=== PATIENT | female | born 1965 | race Caucasian/White ===

== ENCOUNTER 2021-01-21 14:14 | Emergency (ER) | payer SELFPAY ==
[2021-01-21 14:16] VITALS: BP 150/97; PULSE 89; RESP 18; TEMP 36.6; O2SAT 97; BMI 27.2
--- NOTE | 2021-01-21 15:24 | W.ED.BACK ---
HPI - Back Pain/Injury General: Chief Complaint: Back Pain/Injury Stated Complaint: FALL, BACK INJURY Time Seen by Provider: 01/21/21 15:23 History of Present Illness: HPI Narrative: Patient is a 55-year-old female comes to the ED with back pain and injury. Injury occurred approximately 1 week ago. Patient says she was moving some furniture and going up a flight of stairs. She ended up falling backwards approximately 8 stairs up and fell back on her tailbone and lower back region. Denies any head trauma or loss of consciousness, nausea or vomiting. She is here complaining of pain from her tailbone up to her mid back and right ribs. She says that her rib pain is predominantly on the right side it hurts if she coughs or takes a deep breath. She rates her pain a 9 out of 10. She has 2 superficial abrasions on her right and left forearm. Patient says she is unsure of her last tetanus and would like to get a tetanus shot today. She has been taking some ibuprofen to help with pain. Associated symptoms: Deny abdominal pain, chills, dysuria, fatigue, fever(s), hematuria, nausea or vomiting Review of Systems Const: Denies: fever(s), chills or fatigue Eyes: Denies: change in vision or eye discomfort ENMT: Denies: throat pain, odynophagia, nasal discharge or nasal congestion Card: Denies: chest pain, palpitations, edema, swelling of feet/ankles, dyspnea on exertion or orthopnea Resp: Reports: pain on inspiration (Right side/ribs); Denies: dyspnea, productive cough or non-productive cough GI: Denies: abdominal pain, nausea, vomiting, diarrhea, constipation or hematochezia : Denies: flank pain, dysuria or hematuria Musc: Reports: back pain; Denies: neck pain or extremity swelling Skin/Breast: Reports: new lesions (2 superficial abrasions to right left forearm); Denies: rash Neuro: Denies: headache(s), numbness in extremities or weakness in extremities Physical Exam Const: COMMON NORMALS: no acute distress, patient oriented x3, healthy appearing and alert GENERAL APPEARANCE: cooperative and comfortable HENMT: COMMON NORMALS: normocephalic HEAD & SCALP: normocephalic MOUTH: Normal oral and palatal mucosa present THROAT: posterior oropharynx normal and uvula midline Neck/C-Spine: COMMON NORMALS: supple GENERAL: Yes normal visual inspection Chest: CHEST: Yes tenderness rib right mid-scapular line involving the 5th rib, involving the 6th rib, involving the 7th rib and involving the 8th rib Resp: COMMON NORMALS: normal respiratory effort, No retractions, No use of accessory muscles and clear to auscultation bilaterally EFFORT & INSPECTION: Yes able to speak in complete sentences, No tachypneic, No respiratory distress and No labored AUSCULTATION: clear to auscultation bilaterally Cardio: COMMON NORMALS: regular rate, regular rhythm, S1 normal heart sound present, S2 normal heart sound present, No gallops present (Cardio), No clicks present (Cardio), No murmurs present (Cardio) and Peripheral pulses 2+ throughout RATE: regular rate RHYTHM: regular rhythm HEART SOUNDS: S1 normal heart sound present and S2 normal heart sound present PERIPHERAL PULSES: Peripheral pulses 2+ throughout GI: COMMON NORMALS: Normal to inspection, nondistended, normoactive bowel sounds present, Soft to palpation, non-tender and no masses PALPATION: Yes Soft to palpation : COMMON NORMALS: Yes no CVA tenderness BLADDER/KIDNEY EXAM: Yes no CVA tenderness Back/Pelvis: COMMON NORMALS: no CVA tenderness THORACIC SPINE/UPPER BACK: Yes pain with ROM, Yes thoracic spinal tenderness and Yes paraspinal muscle tenderness LUMBAR SPINE/LOWER BACK: Yes pain with ROM, Yes lumbar spinal tenderness and Yes paraspinal muscle tenderness SACRUM: tenderness COCCYX: Coccyx tenderness present Extremity: COMMON NORMALS: normal to inspection Neuro: COMMON NORMALS: patient oriented x3 and moves all extremities SENSORIUM/ORIENTATION: Yes alert Skin: GENERAL SKIN EXAM: dry skin Course Vital Signs: Vital signs: Vital Signs Temperature 97.9 F 01/21/21 14:16 Pulse Rate 75 01/21/21 17:59 Respiratory Rate 16 01/21/21 17:59 Blood Pressure 151/99 01/21/21 17:59 Pulse Oximetry 96 01/21/21 17:59 MDM - Back Pain/Injury MDM Narrative: Medical decision making narrative: Patient is a 55-year-old female comes to the ED with back pain and rib pain after having a fall. Patient says approximately 1 week ago she fell back words off of stairs landing on tailbone, mid and lower back. Denies any head injury or loss of consciousness. Exam findings show some right rib tenderness upon palpation and paraspinal lumbar and thoracic muscle tenderness along with spinal tenderness along the thoracic spine down to the coccyx. X-ray of right ribs showed no acute fractures. X-ray of thoracic spine and sacrum and coccyx showed no acute fractures or findings. X-ray of lumbar spine showed a likely new compression fracture on L2. Patient was diagnosed with a closed wedge compression fracture of L2 vertebrae and was discharged with a TLSO brace and a written prescription for tablets. I placed an order with case management for patient to be referred to an orthospine doctor she is from the [facility]. I told patient that machine adjuster leader case trim will contact her in a couple days to discuss setting up an orthospine doctor appointment. Patient understood agree with plan. Imaging Data^: Xray Ortho: Attestation: I personally reviewed and interpreted this imaging study as follows: Radiologist's impression: [address] [address] XRay Report Signed Patient: MAREK WRIGHT Unit #: [id number] : 1965 Age/Sex: 55 / F ADM Date: 01/21/21 Loc: ER Room/Bed: Attending Dr: Ordering Provider/Ordering MD: Kilo Price Date of Service: 01/21/21 Procedure(s): XR thoracic spine 2V 19242 Accession Number(s): [id number] Report Number: [id number] PROCEDURE INFORMATION: Exam: XR Thoracic Spine Exam date and time: 01/21/2021 3:42 PM Age: 55 years old Clinical indication: Pain and injury or trauma; Blunt trauma (contusions or hematomas); Pain in thoracic spine; Injury date: 01/13/21; Injury details: Fell down stairs; Prior surgery; Surgery type: Gallbladder, fallopian clips; Additional info: Fall injury with back pain TECHNIQUE: Imaging protocol: XR of the thoracic spine. Views: 3 views. Total images: 2 COMPARISON: No relevant prior studies available. FINDINGS: Bones/joints: No visible acute osseous abnormality. Minimal scoliotic curvature. Pedicles intact. Mild to moderate degenerative disease and degenerative disc disease with spondylosis deformans. Soft tissues: Unremarkable. XR/XR thoracic spine 2V 59971 IMPRESSION: No visible acute osseous abnormality. Dictated By: Júnior Mcallister Signed By: Júnior Mcallister Signed Date/Time: 01/21/211647 DD/ [address] [place] [address] XRay Report Signed Patient: MAREK WRIGHT Unit #: [id number] : 1965 Age/Sex: 55 / F ADM Date: 01/21/21 Loc: ER Room/Bed: Attending Dr: Ordering Provider/Ordering MD: Kilo Price Date of Service: 01/21/21 Procedure(s): XR lumbar spine 2-3V* 62815 Accession Number(s): [id number] Report Number: [id number] PROCEDURE INFORMATION: Exam: XR Lumbosacral Spine Exam date and time: 01/21/2021 3:42 PM Age: 55 years old Clinical indication: Pain and injury or trauma; Blunt trauma (contusions or hematomas); Low back pain; Injury date: 01/13/21; Injury details: Fell down stairs; Prior surgery; Surgery type: Gallbladder, fallopian clips; Additional info: Fall injury with back pain TECHNIQUE: Imaging protocol: XR of the lumbosacral spine. Views: 2 or 3 views. Total images: 3 COMPARISON: No relevant prior studies available. FINDINGS: Bones/joints: Mild superior endplate deformity L2, age indeterminate. No visible spondylolysis or spondylolisthesis. Facet arthrosis. Osteopenia. Pedicles intact. Mild degenerative disease. Intervertebral disc space heights relatively preserved throughout for age. Soft tissues: Unremarkable. Intraperitoneal space: Status post cholecystectomy. Organs: Fallopian tube clips. Vasculature: Arteriosclerosis. XR/XR lumbar spine 2-3V* 52968 IMPRESSION: Mild superior endplate deformity L2 age indeterminate. Dictated By: Júnior Mcallister Signed By: Júnior Mcallister Signed Date/Time: 01/21/211645 DD/ [address] [place] [address] XRay Report Signed Patient: MAREK WRIGHT Unit #: [id number] : 1965 Age/Sex: 55 / F ADM Date: 01/21/21 Loc: ER Room/Bed: Attending Dr: Ordering Provider/Ordering MD: Kilo Price Date of Service: 01/21/21 Procedure(s): XR sacrum coccyx min 2V 23282 Accession Number(s): [id number] Report Number: [id number] PROCEDURE INFORMATION: Exam: XR Sacrum and Coccyx, 2 or More Views Exam date and time: 01/21/2021 3:42 PM Age: 55 years old Clinical indication: Pain and injury or trauma; Blunt trauma (contusions or hematomas); Pain in coccyx area; Injury date: 01/13/21; Injury details: Fell down stairs; Prior surgery; Surgery type: Gallbladder, fallopian clips; Additional info: Fall injury with tailbone pain TECHNIQUE: Imaging protocol: XR of the sacrum and coccyx, 2 or more views. Total images: 3 COMPARISON: No relevant prior studies available. FINDINGS: Bones/joints: Normal. No acute fracture. Soft tissues: Normal. XR/XR sacrum coccyx min 2V 89924 IMPRESSION: No acute findings. Dictated By: Júnior Mcallister Signed By: Júnior Mcallister Signed Date/Time: 01/21/211646 DD/ [address] [address] XRay Report Signed Patient: MAREK WRIGHT Unit #: [id number] : 1965 Age/Sex: 55 / F ADM Date: 01/21/21 Loc: ER Room/Bed: Attending Dr: Ordering Provider/Ordering MD: Kilo Price Date of Service: 01/21/21 Procedure(s): XR ribs RT mn 3V w CXR1V 12876 Accession Number(s): [id number] Report Number: [id number] PROCEDURE INFORMATION: Exam: XR Right Ribs with PA Chest Exam date and time: 01/21/2021 3:42 PM Age: 55 years old Clinical indication: Pain and injury or trauma; Rib area; Blunt trauma (contusions or hematomas); Chest wall pain; Right; Prior surgery; Surgery type: Gallbladder, fallopian clips; Additional info: Right rib pain after fall injury TECHNIQUE: Imaging protocol: XR Right ribs with PA chest. Views: 3 views Total images: 3 COMPARISON: No relevant prior studies available. FINDINGS: Lungs: No visible active interstitial or alveolar airspace disease. No visible pulmonary contusion. Suspected component of COPD/chronic bronchitis. Pleural spaces: Unremarkable. No pleural effusion. No pneumothorax. . No visible hemothorax. Heart/Mediastinum: Cardiac structures and configuration unremarkable. Bones/joints: No visible rib fracture. XR/XR ribs RT mn 3V w CXR1V 79757 IMPRESSION: No visible rib fracture. Dictated By: Júnior Mcallister Signed By: Júnior Mcallister Signed Date/Time: 01/21/211642 DD/ 41 Discharge Plan Discharge Patient Disposition: Home Clinical Impression: Closed wedge compression fracture of L2 vertebra Qualifiers: Encounter type: initial encounter Qualified Code(s): S32.020A - Wedge compression fracture of second lumbar vertebra, initial encounter for closed fracture Condition: Stable Prescriptions: No Action olanzapine 5 mg Tablet 5 mg PO BEDTIME@2200 RF: 0 gabapentin 300 mg Capsule 300 mg PO BEDTIME@2200 RF: 0 sertraline 50 mg PO BEDTIME@2200 RF: 0 Discharge Orders: Discharge ED (Routine); Ordered 01/21/21 Ordered By: Kilo Price Discharge Diet: Regular Discharge Activity: Limit activity as instructed Patient Instructions: Thoracolumbar Fracture (ED), Opioid Safety Activity Restrictions/Additional Instructions: Follow-up with medical provider as directed. Case management will contact you in the next several days to set up an appointment with orthopedic spine doctor. Take medications as prescribed. Wear TLSO brace as directed. No Lifting until cleared by ortho spine doctor. Return to the ER or your medical provider if condition worsens. Please read and understand discharge instructions. Thank you for choosing [facility] for your healthcare needs today. Please realize this is an emergency room and that we are providing you with a medical screening exam and this may not be complete and all inclusive of all the testing and or work up that you may need to determine your ailment or severity of your illness. It is very important that you follow up as instructed or that you return to the Emergency Department should you have concerns or if your condition changes or worsens in any way. Coding Level of Care Code ED Consumer Loan Officer for Chg Fwd Exam Comprehensive
--- NOTE | 2021-01-21 15:36 | XRR_ITS ---
PROCEDURE INFORMATION: Exam: XR Lumbosacral Spine Exam date and time: 01/21/2021 3:42 PM Age: 55 years old Clinical indication: Pain and injury or trauma; Blunt trauma (contusions or hematomas); Low back pain; Injury date: 01/13/21; Injury details: Fell down stairs; Prior surgery; Surgery type: Gallbladder, fallopian clips; Additional info: Fall injury with back pain TECHNIQUE: Imaging protocol: XR of the lumbosacral spine. Views: 2 or 3 views. Total images: 3 COMPARISON: No relevant prior studies available. FINDINGS: Bones/joints: Mild superior endplate deformity L2, age indeterminate. No visible spondylolysis or spondylolisthesis. Facet arthrosis. Osteopenia. Pedicles intact. Mild degenerative disease. Intervertebral disc space heights relatively preserved throughout for age. Soft tissues: Unremarkable. Intraperitoneal space: Status post cholecystectomy. Organs: Fallopian tube clips. Vasculature: Arteriosclerosis. XR/XR lumbar spine 2-3V* [id number] IMPRESSION: Mild superior endplate deformity L2 age indeterminate.
--- NOTE | 2021-01-21 15:36 | XRR_ITS ---
PROCEDURE INFORMATION: Exam: XR Right Ribs with PA Chest Exam date and time: 01/21/2021 3:42 PM Age: 55 years old Clinical indication: Pain and injury or trauma; Rib area; Blunt trauma (contusions or hematomas); Chest wall pain; Right; Prior surgery; Surgery type: Gallbladder, fallopian clips; Additional info: Right rib pain after fall injury TECHNIQUE: Imaging protocol: XR Right ribs with PA chest. Views: 3 views Total images: 3 COMPARISON: No relevant prior studies available. FINDINGS: Lungs: No visible active interstitial or alveolar airspace disease. No visible pulmonary contusion. Suspected component of COPD/chronic bronchitis. Pleural spaces: Unremarkable. No pleural effusion. No pneumothorax. . No visible hemothorax. Heart/Mediastinum: Cardiac structures and configuration unremarkable. Bones/joints: No visible rib fracture. XR/XR ribs RT mn 3V w CXR1V [id number] IMPRESSION: No visible rib fracture.
--- NOTE | 2021-01-21 15:36 | XRR_ITS ---
PROCEDURE INFORMATION: Exam: XR Thoracic Spine Exam date and time: 01/21/2021 3:42 PM Age: 55 years old Clinical indication: Pain and injury or trauma; Blunt trauma (contusions or hematomas); Pain in thoracic spine; Injury date: 01/13/21; Injury details: Fell down stairs; Prior surgery; Surgery type: Gallbladder, fallopian clips; Additional info: Fall injury with back pain TECHNIQUE: Imaging protocol: XR of the thoracic spine. Views: 3 views. Total images: 2 COMPARISON: No relevant prior studies available. FINDINGS: Bones/joints: No visible acute osseous abnormality. Minimal scoliotic curvature. Pedicles intact. Mild to moderate degenerative disease and degenerative disc disease with spondylosis deformans. Soft tissues: Unremarkable. XR/XR thoracic spine 2V 89897 IMPRESSION: No visible acute osseous abnormality.
--- NOTE | 2021-01-21 15:36 | XRR_ITS ---
PROCEDURE INFORMATION: Exam: XR Sacrum and Coccyx, 2 or More Views Exam date and time: 01/21/2021 3:42 PM Age: 55 years old Clinical indication: Pain and injury or trauma; Blunt trauma (contusions or hematomas); Pain in coccyx area; Injury date: 01/13/21; Injury details: Fell down stairs; Prior surgery; Surgery type: Gallbladder, fallopian clips; Additional info: Fall injury with tailbone pain TECHNIQUE: Imaging protocol: XR of the sacrum and coccyx, 2 or more views. Total images: 3 COMPARISON: No relevant prior studies available. FINDINGS: Bones/joints: Normal. No acute fracture. Soft tissues: Normal. XR/XR sacrum coccyx min 2V [id number] IMPRESSION: No acute findings.
[2021-01-21] MEDS: HYDROcodone-acetaminophen 7.5-325 mg Tablet 1 TAB PO (15:42)
[2021-01-21 15:43] VITALS: BP 156/105; PULSE 75; RESP 18; O2SAT 99
[2021-01-21] MEDS: tetanus-dipt-pertussis 0.5 mL SDV IM (15:51)
[2021-01-21 17:59] VITALS: BP 151/99; PULSE 75; RESP 16; O2SAT 96
--- NOTE | 2021-01-24 10:00 | DCPLANNER ---
residential mortgage manager had message to schedule a follow up appointment for patient with ortho. residential mortgage manager called the ortho clinic, spoke with Kathi, gave clinic patients information. residential mortgage manager was told that patients information would be printed and reviewed. Clinic will call patient with appointment information.
--- NOTE | 2021-02-02 08:13 | DCPLANNER ---
Patient had a follow up appointment scheduled for 01.27.[address] Tolbert at [facility] - patient did attend appointment.
== END 2021-01-21 19:02 | disposition home or self-care (01) ==
PROVIDERS: Emergency Provider Physician Assistant
DX: S32.020A Wedge compression fracture of second lumbar vertebra, initial encounter for closed fracture (principal); W10.8XXA Fall (on) (from) other stairs and steps, initial encounter; Z23 Encounter for immunization
CPT/HCPCS: 71101; 72070; 72100; 72220; 90471; 90715; 99283